=== PATIENT | male | born 1990 | race Caucasian/White ===

== ENCOUNTER 2017-08-18 12:04 | Emergency (ER) | payer MEDICAID ==
[~2017-08-18] VITALS: Ht 5871 cm; Wt 72.0 kg
[2017-08-18] MEDS: normal saline 1000ML IV soln IVB ONE (12:17)
[2017-08-18] MEDS: naloxone 0.4 mg/ml inj IV ONE ×2 (12:18→12:37)
[2017-08-18 13:23] VITALS: BP 154/106
== END 2017-08-18 13:25 | disposition home or self-care (01) ==
LOC: ER 12:04
DX: T40.1X4A Poisoning by heroin, undetermined, initial encounter (principal); F10.129 Alcohol abuse with intoxication, unspecified; F12.10 Cannabis abuse, uncomplicated; R41.82 Altered mental status, unspecified; Y90.9 Presence of alcohol in blood, level not specified; Y92.9 Unspecified place or not applicable
CPT/HCPCS: 82948; 96374; 99284; J2310; J7030

== ENCOUNTER 2021-11-02 17:15 | Emergency (ER) | payer MEDICAID ==
[~2021-11-02] VITALS: Ht 177.8 cm; Wt 79.5 kg
[2021-11-02 17:35] VITALS: BP 128/83
[2021-11-02] MEDS ORDERED: acetaminophen 325mg tablet PO ONE (18:15)
[2021-11-02] MEDS ORDERED: ketorolac trometh. 30mg/ml inj. IM ONE (18:15)
--- NOTE | 2021-11-02 18:59 | NUR ---
po med given im given crutch training given
== END 2021-11-02 19:01 | disposition home or self-care (01) ==
LOC: ER 17:16
DX: S93.401A Sprain of unspecified ligament of right ankle, initial encounter (principal); F12.10 Cannabis abuse, uncomplicated; F11.10 Opioid abuse, uncomplicated; Z87.81 Personal history of (healed) traumatic fracture; X50.0XXA Overexertion from strenuous movement or load, initial encounter; Y93.89 Activity, other specified; Y92.89 Other specified places as the place of occurrence of the external cause; Y99.8 Other external cause status
CPT/HCPCS: 73610; 73630; 96372; 99284; J1885; L4360

== ENCOUNTER 2025-01-31 19:22 | Emergency (ER) | payer MEDICAID ==
[~2025-01-31] VITALS: Ht 177.8 cm; Wt 75.5 kg
[2025-01-31 19:28] VITALS: BP 146/88; PULSE 101; RESP 19; O2SAT 97
--- NOTE | 2025-01-31 20:24 | Physician Documentation ---
History of Present Illness ~ Chief Complaint: Laceration Stated Complaint: FINGER LAC Time Seen by MD: 20:22 HPI Patient is seen today with complaints of 1.5 cm laceration to his right long finger ulnar aspect with his butterfly knife just prior to arrival. Patient states this was an accident. He has no other concern or complaint at this time. Tetanus Within 5 Years: No (unknown) Medication Reconciliation Allergies: Coded Allergies: No Known Allergies (Unverified , 11/02/21) Past Medical History Past Medical History: Extremity Fracture Past Surgical History: orthopedic surgeries Alcohol Use: Occasionally Drug Use: marijuana, heroin Lives In: Home Review of Systems Constitutional: Denies: chills, fever, weakness Eyes: Denies: pain, blurred vision ENT: Denies: ear pain, nose pain, throat pain, mouth pain Respiratory: Denies: cough, shortness of breath Cardiovascular: Denies: chest pain, palpitations Gastrointestinal: Denies: abdominal pain, nausea, vomiting Genitourinary: Denies: burning, dysuria Male Genitalia: Denies: penile discharge, testicular pain Neurological: Denies: headache, dizziness Musculoskeletal: Denies: pain, swelling Integumentary: Denies: rash, lesions Allergic/Immunologic: Denies: hives, itching Hematologic/Lymphatic: Denies: no symptoms reported Psychiatric: Denies: depression, anxiety Physical Exam Vital Signs: Temperature: 98.9, Source: Oral, Heart Rate: 101, Respiratory Rate: 19, BP: 146/88, Pulse Oximetry: 97, Weight: 75.550 Oxygen Flow Rate: 0 Physical Exam General: Awake and Alert, no acute distress. HEENT: Conjunctiva pink, Sclera clear, Mucus Membranes moist. Neck: Supple without masses and tenderness. Resp: Unlabored. Lungs clear to auscultation bilaterally. Heart: Regular Rate and rhythm, normal S1 and S2 without murmur, rub or gallop. Musculoskeletal: Patient on exam does have infant 5 cm laceration to the ulnar aspect of the distal phalanx of the right long finger that also involves the palmar aspect. Patient is neurovascularly intact distally. Motor function intact distally. Extremities: No cyanosis,clubbing or edema. Skin: Warm and Dry. Procedures Laceration/Wound Repair Laceration : Procedure Note Procedure note: 3 cc of 1% lidocaine with epinephrine was used to achieve local anesthesia local infiltration only of the right long finger. Patient tolerated well. Wound was irrigated with copious amounts of normal saline and cleansed with chlorhexidine. Four simple sutures were used to achieve closure. Adhesive bandage placed over laceration site. Progress Results/Orders Results/Orders Completed Orders - MARILU GASTON Lidocaine 1% 30ml Vial (Xylocaine 1% Via (01/31/25 20:22) Vital Signs 01/31/25 19:28 Temp 98.9 Pulse 101 Resp 19 B/P (MAP) 146/88 Pulse Ox 97 O2 Flow Rate 0 Medical Decision Making Findings Patient is seen today with complaints of laceration to his right long finger ulnar aspect with his butterfly knife just prior to arrival. Patient states this was an accident. He has no other concern or complaint at this time. Patient states he did have Tdap vaccination couple of years ago. Patient did have four simple sutures placed in right long finger for closure of the laceration. Patient tolerated well. Patient will follow up in seven days for suture removal. Return to ED with any worsening, concerning or changing symptoms or signs of infection. Departure Disposition: 01 HOME / SELF CARE / HOMELESS Impression: Primary Impression: Laceration Condition: Improved Discharge Instructions: Laceration Care, Adult, [id number] Additional Instructions: Patient did have four simple sutures placed in right long finger for closure of the laceration. Patient tolerated well. Patient will follow up in seven days for suture removal. Return to ED with any worsening, concerning or changing symptoms or signs of infection. Referrals: NO PRIMARY CARE PROVIDER (PCP) Signature Scribe Signature: No scribe Attestation: No scribe MARILU GASTON Jan 31, 2025 20:24
[2025-01-31] MEDS: LIDOcaine 1% 30ml preserv. free vial IJ STA (21:06)
[2025-01-31 22:11] VITALS: TEMP 98.9
== END 2025-01-31 22:12 | disposition home or self-care (01) ==
LOC: ER 19:23
DX: S61.212A Laceration without foreign body of right middle finger without damage to nail, initial encounter (principal); F12.90 Cannabis use, unspecified, uncomplicated; F11.90 Opioid use, unspecified, uncomplicated; Z72.89 Other problems related to lifestyle; W26.0XXA Contact with knife, initial encounter; Y93.89 Activity, other specified; Y92.89 Other specified places as the place of occurrence of the external cause; Y99.8 Other external cause status
CPT/HCPCS: 12002; 99282; A6258; A6449